=== PATIENT | male | born 1995 | race Two or more races ===

== ENCOUNTER 2019-06-30 14:26 | Emergency (ER) | payer SELFPAY ==
[~2019-06-30] VITALS: Ht 167.6 cm; Wt 70.3 kg
--- NOTE | 2019-06-30 14:37 | NUR ---
CAME IN FOR RT HAND LACERATION FROM TABLE SAW X 30 MINS AGO, UNKNOWN LAST TDAP SHOT. TO ER BED 11, HOOKED TO MONITOR, CHANGED TO HOSP GOW, AWAITING MD ROSALES.
[2019-06-30] MEDS ORDERED: LIDOCAINE 1%-EPI 1:100,000 20 ML VIAL ONE (14:55)
--- NOTE | 2019-06-30 14:57 | NUR ---
CALLED ERICK [phone] [facility] [place]
[2019-06-30] MEDS ORDERED: HYDROCODONE/APAP 5/325MG 1 EACH TABLET ONE (15:05)
[2019-06-30] MEDS ORDERED: TDAP [DIPH/PERTUSSIS/TET] 0.5 ML VIAL IM ONE (15:06)
[2019-06-30] MEDS ORDERED: CEPHALEXIN MONOHYDRATE 500 MG CAPSULE PO ONE (15:06)
[2019-06-30] MEDS: CEPHALEXIN MONOHYDRATE 500 MG CAPSULE PO ONE (15:11)
[2019-06-30] MEDS: LIDOCAINE 1%-EPI 1:100,000 20 ML VIAL TP ONE (15:12)
[2019-06-30] MEDS: HYDROCODONE/APAP 5/325MG 1 EACH TABLET PO ONE (15:12)
--- NOTE | 2019-06-30 15:12 | NUR ---
WM MARROQUIN AT BEDSIDE FOR SUTURING
[2019-06-30 15:22] LABS: BASOPHILS # (AUTO) 0.1 /CMM (0.0-0.2); BASOPHILS % (AUTO) 1.1 % (0.0-2.0); HEMATOCRIT 48 % (39-51); LYMPHOCYTES % (AUTO) 26.8 % (20.0-44.0); MEAN CORPUSCULAR HGB CONC 33 g/dl (31.0-36.0); MEAN CORPUSCULAR VOLUME 89 fL (80-96); MONOCYTES # (AUTO) 0.7 /CMM (0.1-1.30); MONOCYTES % (AUTO) 8.8 % (2.0-12.0); NEUTROPHILS # (AUTO) 4.6 /CMM (1.8-8.9); NEUTROPHILS % (AUTO) 60.3 % (43.0-81.0); PLATELET COUNT (AUTO) 261 /CMM (150-450); RED BLOOD CELL COUNT(AUTO) 5.43 MIL/uL (4.5-6.0); WHITE BLOOD COUNT (AUTO) 7.6 K/uL (4.3-11.0)
[2019-06-30 15:25] LABS: CALCIUM, SERUM 9.1 mg/dL (8.5-10.1); CREATININE 0.8 mg/dL (0.6-1.3); POTASSIUM 3.6 mmol/L (3.5-5.1)
[2019-06-30 15:36] LABS: ALBUMIN 4.6 g/dL (3.4-5.0); BILIRUBIN,DIRECT 0.1 mg/dL (0.0-0.2); BILIRUBIN,TOTAL 0.3 mg/dL (0.2-1.0); TOTAL PROTEIN, SERUM 7.9 g/dL (6.4-8.2)
[2019-06-30] MEDS: TDAP [DIPH/PERTUSSIS/TET] 0.5 ML VIAL IM ONE (15:36)
--- NOTE | 2019-06-30 16:19 | NUR ---
Patient discharged to home in stable condition. Written and verbal after care instructions given. Patient verbalizes understanding of instruction.
[2019-06-30 16:21] VITALS: BP 132/74
== END 2019-06-30 16:21 | disposition home or self-care (01) ==
LOC: ER 14:30
DX: S62.660A Nondisplaced fracture of distal phalanx of right index finger, initial encounter for closed fracture (principal); S66.320A Laceration of extensor muscle, fascia and tendon of right index finger at wrist and hand level, initial encounter; Z23 Encounter for immunization; X58.XXXA Exposure to other specified factors, initial encounter; Y93.89 Activity, other specified; Y92.89 Other specified places as the place of occurrence of the external cause; Y99.8 Other external cause status
CPT/HCPCS: 12002; 36415; 73130; 80048; 80076; 85025; 85730; 90471; 90715; 99284; A6403; J3490